=== PATIENT | female | born 2005 | race African-American/Black ===

== ENCOUNTER 2025-03-03 09:47 | Emergency (ER) | payer MEDICAID, OTHER ==
[2025-03-03] MEDS ORDERED: Ondansetron PF 4 MG/2 ML Vial ONE ×2 (10:20→17:31)
[2025-03-03 11:14] LABS: #Lymphocytes 2.4 thou/uL (1.20-3.40); #Monocytes 0.8 thou/uL (0.11-0.59); #Neutrophils 7.9 thou/uL (1.40-6.50); %Basophils 0.4 % (0.0-1.0); %Eosinophils 0.1 % (0.0-10.0); %Lymphocytes 21.7 % (28.0-48.0); %Monocytes 7.4 % (0.0-4.0); %Neutrophils 70.4 % (31.0-61.0); Hematocrit 49.7 % (36.0-47.0); Hemoglobin 16.7 g/dL (12.0-16.0); Mean Corpuscular HGB CONC 33.5 g/dL (32.0-36.0); Mean Corpuscular Hemoglobin 29.1 pg (25.0-35.0); Mean Corpuscular Volume 86.9 fl (78.0-98.0); Mean Platelet Volume 6.8 fL (7.4-10.4); Platelet Count 293 10x3/uL (130-400); RBC Distribution Width 11.5 % (11.5-14.5); Red Blood Cell (RBC) Count 5.72 mill/uL (4.00-5.20); White Blood Cell (WBC) Count 11.2 10x3/uL (4.8-10.8)
[2025-03-03 11:34] LABS: Bilirubin Moderate (Negative); Blood, Urine Negative (Negative); Clarity Cloudy (Clear); Glucose, Urine (Dipstick) Negative (Negative); Ketone, Urine > or equal to 80 mg/dL (Negative); Leukocyte Negative (Negative); Nitrite Negative (Negative); Protein, Urine (Dipstick) 100 mg/dL (Neg-Trace); Specific Gravity, Urine Greater/Equal 1.030 (1.005-1.030); Urobilinogen 0.2 mg/dL (Less than 2)
[2025-03-03 11:48] LABS: Amphetamine Negative (Negative); Barbiturates Screen Negative (Negative); Benzodiazepine Screen Negative (Negative); Cocaine Metabolite Screen Negative (Negative); Methadone Negative (Negative); Methamphetamine Negative (Negative); Opiate Screen Negative (Negative); Oxycodone Screen Negative (Negative); Phencyclidine (PCP) Negative (Negative); THC/Cannabinoid Screen PRELIM POSITIVE (Negative); Tricyclic Screen Negative (Negative)
[2025-03-03 11:48] LABS: Pregnancy Test - Urine (BHCG) Negative (Negative); Pregu Control Background? CLEAR/WHITE (CLR/WHITE); Pregu Control Bar Appear? YES (CONTROL BAR)
[2025-03-03 11:57] LABS: CAUTI Indications for Culture Dysuria,urgency,freq; RBC/HPF None Seen HPF (0-3); WBC/HPF 0-3 HPF (0-3)
[2025-03-03 11:58] LABS: Bacteria/HPF 2+ HPF (None Seen); Mucous/LPF 4+ LPF (<2+)
[2025-03-03 11:59] LABS: Urine Culture Reflex No No
[2025-03-03 11:59] LABS: Lipase 39 U/L (8-78); Protein, Total 9.5 g/dL (6.0-8.3)
[2025-03-03 12:00] LABS: ALT (SGPT) 16 U/L (Less than 34); Glucose 74 mg/dL (70-105)
[2025-03-03 12:02] LABS: Alkaline Phosphatase 49 U/L (40-100); BUN (Urea Nitrogen) 15 mg/dL (7.0-18.7); Bilirubin, Total 0.9 mg/dL (0.3-1.2); Calc. Creatinine Clearance 0 mL/min (70-130); Calcium 9.6 mg/dL (7.8-10.44); Estimated GFR 79
[2025-03-03 12:04] LABS: AST (SGOT) 37 U/L (11-34); Albumin 4.9 g/dL (3.1-4.5); Anion Gap 26 mmol/L (10-20); Carbon Dioxide 12 mmol/L (22-29); Chloride 100 mmol/L (98-107); Magnesium 1.9 mg/dL (1.7-2.2); Sodium 134 mmol/L (136-145)
[2025-03-03 12:42] LABS: CO2 Tension (PvCO2) 42.1 mmHg (42.0-51.0); Calcium, Ionized 1.07 mmol/L (1.15-1.33); Chloride 109 mmol/L (98-107); Hemoglobin - Calc 13.4 g/dL (12.0-16.0); Potassium 3.5 mmol/L (3.5-5.1); Sodium 139 mmol/L (138-145); T. Carbon Dioxide 19.3 mmol/L (22.0-28.0); vO2 Saturation-calc 99.4 % (60.0-85.0)
[2025-03-03] MEDS ORDERED: Sodium Bicarb 50 mEq/50 ML VIAL ONE (12:57)
[2025-03-03 13:14] LABS: Acetaminophen Less than 10 mcg/mL (Less than 10); Alcohol Less than 10.0 mg/dL (Less than 10); Salicylate Less than 8.0 mg/dL (Less than 8.0)
[2025-03-03 16:18] LABS: Reference Lab Name LABCORP
== END 2025-03-03 23:23 | disposition short-term general hospital (02) ==
LOC: BURERS 09:47
DX: E87.20 Acidosis, unspecified (principal); R11.2 Nausea with vomiting, unspecified; F17.290 Nicotine dependence, other tobacco product, uncomplicated
CPT/HCPCS: 36415; 80053; 80306; 80307; 81001; 81025; 82330; 82803; 83605; 83690; 83735; 85025; 96361; 96374; 96376; J2405

== ENCOUNTER 2025-05-15 07:58 | Emergency (ER) | payer MEDICAID ==
[2025-05-15 08:43] LABS: #Basophils 0.1 thou/uL (0.0-0.2); #Eosinophils 0.0 thou/uL (0.0-0.7); #Lymphocytes 0.9 thou/uL (1.20-3.40); #Monocytes 0.8 thou/uL (0.11-0.59); #Neutrophils 13.4 thou/uL (1.40-6.50); %Basophils 0.5 % (0.0-1.0); %Eosinophils 0.0 % (0.0-10.0); %Lymphocytes 6.2 % (28.0-48.0); %Monocytes 5.1 % (0.0-4.0); %Neutrophils 88.3 % (31.0-61.0); Hematocrit 34.1 % (36.0-47.0); Hemoglobin 12.1 g/dL (12.0-16.0); Mean Corpuscular Hemoglobin 30.8 pg (25.0-35.0); Mean Corpuscular Volume 87.1 fl (78.0-98.0); Platelet Count 256 10x3/uL (130-400); Red Blood Cell (RBC) Count 3.92 mill/uL (4.00-5.20); White Blood Cell (WBC) Count 15.2 10x3/uL (4.8-10.8)
[2025-05-15 08:47] LABS: BHCG - Serum Negative (NEGATIVE); Pregs Control Background? CLEAR/WHITE (CLR/WHITE); Pregs Control Bar Appear? YES (CONTROL BAR)
[2025-05-15 08:54] LABS: ALT (SGPT) 11 U/L (Less than 34); AST (SGOT) 27 U/L (11-34); Albumin 4.1 g/dL (3.1-4.5); Alkaline Phosphatase 50 U/L (40-100); Anion Gap 17 mmol/L (10-20); BUN (Urea Nitrogen) 15 mg/dL (7.0-18.7); Bilirubin, Total 0.2 mg/dL (0.3-1.2); Calc. Creatinine Clearance 0 mL/min (70-130); Calcium 9.0 mg/dL (7.8-10.44); Carbon Dioxide 18 mmol/L (22-29); Chloride 110 mmol/L (98-107); Globulin 3.2 g/dL (2.4-3.5); Glucose 108 mg/dL (70-105); Lipase 19 U/L (8-78); Potassium 3.6 mmol/L (3.5-5.1); Sodium 141 mmol/L (136-145)
== END 2025-05-15 09:45 | disposition home or self-care (01) ==
LOC: BURERS 07:58
DX: R11.2 Nausea with vomiting, unspecified (principal); J45.909 Unspecified asthma, uncomplicated; F17.210 Nicotine dependence, cigarettes, uncomplicated; Z79.899 Other long term (current) drug therapy
CPT/HCPCS: 80053; 83690; 84703; 85025; 96361; 96374; J1630